=== PATIENT | male | born 1970 | race Caucasian/White ===

== ENCOUNTER 2019-05-11 13:58 | Emergency (ER) | payer OTHER, SELFPAY ==
[2019-05-11 14:05] VITALS: BP 150/99; PULSE 80; RESP 18; TEMP 36.4; O2SAT 99
[2019-05-11 14:36] LABS: Add Manual Diff / Slide Review NO; Basophils Absolute Auto 0 /uL (0-100); Basophils Percent Auto 0.3 % (0-2); Eosinophils Absolute Auto 0 /uL (0-450); Eosinophils Percent Auto 0.2 % (2-4); Hematocrit 46.6 % (41-53); Hemoglobin 16.5 g/dL (13.5-17.5); Lymphocytes Absolute Auto 900 /uL (1100-4500); Lymphocytes Percent Auto 6.6 % (25-40); Mean Corpuscular HGB Conc 35.4 % (30-36); Mean Corpuscular Hemoglobin 31.8 PG (26-34); Mean Corpuscular Volume 89.9 fL (80-100); Monocytes Absolute Auto 900 /uL (0-900); Monocytes Percent Auto 6.7 % (3-14); Neutrophils Absolute Auto 11500 /uL (1500-7000); Neutrophils Percent Auto 86.2 % (50-75); Platelet Count 263 X10^3/uL (150-400); Red Blood Cell Count 5.18 X10^6/uL (4.5-5.9); Red Cell Distribution Width 13.7 % (11.6-14.8); White Blood Cell Count 13.4 X10^3/uL (4.5-11.0)
[2019-05-11 14:50] LABS: Alanine Aminotransferase 34 IU/L (<50); Albumin 4.9 g/dL (3.5-5.0); Albumin Globulin Ratio 1.4 (1.0-2.8); Alkaline Phosphatase 111 U/L (38-126); Amylase 72 U/L (30-110); Aspartate Aminotransferase 26 IU/L (17-59); BUN Creatinine Ratio 14.2 (6-22); Bilirubin Total 0.5 mg/dL (0.2-1.3); Blood Urea Nitrogen 17 mg/dL (9-20); Carbon Dioxide 26 mmol/L (22-32); Chloride 101 mmol/L (98-107); Estimated Glomerular Filt Rate > 60.0 mL/min (>60); Globulin 3.5 g/dL (1.7-4.1); Glucose 138 mg/dL (70-100); HEMOLYSIS < 15 (0-50); Lipase 32 U/L (23-300); Sodium 139 mmol/L (137-145); Total Protein 8.4 g/dL (6.3-8.2)
[2019-05-11] MEDS: KETOROLAC 60 MG/2 ML VIAL 30 MG IV (14:50)
[2019-05-11] MEDS: MORPHINE 4 MG/ML INJ IV (14:51)
[2019-05-11] MEDS: SODIUM CHLORIDE 0.9% 1,000 ML 1000 ML IV (14:51)
--- NOTE | 2019-05-11 15:19 | DI.CT.S_ITS ---
PROCEDURE: CT KIDNEY URETER BLADDER (KUB) INDICATIONS: flank pain, right TECHNIQUE: Noncontrast 5 mm thick sections acquired from the diaphragms to the symphysis. 5 mm thick coronal and sagittal reformats were then performed. For radiation dose reduction, the following was used: automated exposure control, adjustment of mA and/or kV according to patient size. COMPARISON: [facility], CT, CT ABDOMEN PELVIS WITHOUT CONTRAST, 12/27/2013, 0:03. FINDINGS: Image quality: Diagnostic. Lung bases: Lung bases are clear. Heart size is normal. Urinary system: The kidneys are normal in size. However, there is slight enlargement of the right kidney when compared to the left. There is perinephric edema. Moderate right sided hydronephrosis with severe hydroureter is identified. This is slightly more prominent on the current exam. No definite periureteral stranding is evident. There is a rounded ureteral calculus identified near the vesicoureteral junction that measures approximately 4 x 3 x 5 mm (image 70, is raised 2). No additional ureteral calculi are evident. No additional renal calculi are seen bilaterally. No left-sided hydronephrosis or hydroureter is evident. No left ureteral calculi are present. No obvious renal lesions are appreciated. However, the kidneys are not evaluated for parenchymal abnormalities without contrast. The bladder is somewhat distended. However, no bladder calculi or significant bladder wall thickening is evident. Other solid organs: Liver is normal in size. Gallbladder is not enlarged or inflamed. Pancreas is normal in contours. Spleen is normal in size. No adrenal nodules. Peritoneum and bowel: The stomach is unremarkable. The small bowel loops are nondilated. There is felt to represent the appendix is normal in size. No inflammation surrounding the cecum is evident. Moderate amount of residual stool within the proximal colon is evident. However, the more distal portions of the colon are relatively decompressed. No free fluid or loculated fluid collection is identified. There is no free air. Nodes and vessels: No retroperitoneal or mesenteric adenopathy by size criteria. Aorta and inferior vena cava are normal in caliber. Other pelvic soft tissues: No free pelvic fluid. There is a small fat containing left inguinal hernia. No adenopathy is evident. There is no loculated fluid collection or free air. Bones: No acute fracture or suspicious osseous lesion is identified involving the osseous structures of the abdomen or pelvis. Straightening of the normal lumbar lordosis is present. There may be mild degenerative changes of the lower lumbar spine. Bones: No suspicious bony lesions. No acute pelvic fracture is identified. IMPRESSION: 1. Moderate-sized distal right ureteral calculus with associated prominent hydroureter and moderate hydronephrosis. 2. No additional nephroureterolithiasis. 3. Small fat containing left internal hernia. 4. No bowel obstruction. Dictated by: Reno Lauren M.D. on 05/11/2019 at 15:15 Approved by: Reno Lauren M.D. on 05/11/2019 at 15:22
[2019-05-11 15:30] VITALS: BP 125/82; PULSE 79; RESP 18; O2SAT 98
[2019-05-11 15:56] LABS: Bacteria Urine None Seen
--- NOTE | 2019-05-11 16:02 | ED_ITS ---
HPI - Male Genitourinary <JASPAL Siu - Last Filed: 05/11/19 19:03> General Chief complaint: Urogenital-Male Stated complaint: passing kidney stone Time Seen by Provider: 05/11/19 14:28 Source: patient and family Mode of arrival: Ambulatory Limitations: no limitations History of Present Illness HPI Narrative: The patient is a 48-year-old male nonsmoker with history of kidney stones who presents with his for chief complaint of right-sided flank pain and that he is ?passing a kidney stone.States that he woke up with pain today, and that has since been getting worse. Complains of associated nausea, no vomiting. States it starts in his right flank radiating around his a bdomen. States that he had some very slight blood in his urine, but denies any dysuria urgency or frequency denies any fevers chest pain or shortness of breath. Related Data Home Medications Medication Instructions Recorded Confirmed bupropion HCl [Wellbutrin SR] 300 mg PO DAILY #0 05/12/17 Previous Rx's Medication Instructions Recorded clindamycin HCl 300 mg PO Q6H #28 cap 05/12/17 hydrocodone-acetaminophen [[place]] 1 tab PO Q6HP PRN #12 tab 05/12/17 hydrocodone-acetaminophen [[place]] 1 tab PO Q4-6H PRN #10 tab 05/11/19 ketorolac 10 mg PO TID PRN #14 tab 05/11/19 ondansetron 4 mg PO Q6H PRN #20 tab 05/11/19 tamsulosin [Flomax] 0.4 mg PO DAILY #7 cap 05/11/19 Allergies Allergy/AdvReac Type Severity Reaction Status Date / Time Sulfa (Sulfonamide Allergy Unknown Verified 05/11/19 14:50 Antibiotics) [SULFA (SULFONAMIDE ANTIBIOTICS)] Review of Systems <JASPAL Siu - Last Filed: 05/11/19 19:03> Review of Systems Narrative: GENERAL: Denies chills, fatigue, malaise, fever, sweats. HEENT: Denies sinus pain, ear pain, sore throat, difficulty swallowing, dizziness. RESPIRATORY: Denies dyspnea, cough, wheezing, hemoptysis, sputum. CARDIOVASCULAR: Denies chest pain, palpitations, orthopnea, edema, GASTROINTESTINAL: See HPI : See HPI MUSCULOSKELETAL: denies weakness, joint pain, or bony pain SKIN: Denies rash, skin lesions, or other NEUROLOGIC: Denies weakness, headache, numbness, change in speech, confusion, seizures, incoordination. PSYCHIATRIC: No concerning psychosocial issues. 12 point review of systems is negative except for those stated above Patient History <JASPAL Siu - Last Filed: 05/11/19 19:03> Medical History (Updated 05/11/19 @ 17:07 by JASPAL Siu) History of kidney stones (Acute) Social History Smoking Status: Never smoker Smoking Status: Never smoker Substance Use Type: does not use Exam <JASPAL Siu - Last Filed: 05/11/19 19:03> Narrative Exam Narrative: GENERAL: This is a well-nourished, well-developed patient, appears uncomfortable HEAD: Atraumatic. Normocephalic. No temporal or scalp tenderness. EYES: Pupils equal round and reactive. Extraocular motions intact. No scleral icterus. No injection or drainage. ENT: Nose without bleeding, purulent drainage or septal hematoma. Throat without erythema, tonsillar hypertrophy or exudate. Uvula midline. Airway patent. NECK: Trachea midline. No JVD or lymphadenopathy. Supple, nontender, no meningeal signs. CARDIOVASCULAR: Regular rate and rhythm RESPIRATORY: Clear to auscultation. Breath sounds equal bilaterally. No wheezes, rales, or rhonchi. No cough. No increased respiratory effort. No accessory muscle use GASTROINTESTINAL: Abdomen soft, slight right lower quadrant pain to palpation no guarding, nondistended. No hepato-splenomegaly, or palpable masses. Active bowel sounds all 4 quadrants EXTREMITIES: No clubbing, cyanosis, or edema. No joint tenderness, effusion, or edema noted. BACK: Nontender without deformity or crepitance. Right-sided flank pain, no left-sided flank pain NEURO: AOx3. Stable gait, interactive, age appropriate SKIN: No rash or erythema on visible skin Initial Vital Signs Initial Vital Signs: Vital Signs Temperature 97.5 F L 05/11/19 14:05 Pulse Rate 80 05/11/19 14:05 Respiratory Rate 18 05/11/19 14:05 Blood Pressure 150/99 H 05/11/19 14:05 Pulse Oximetry 99 05/11/19 14:05 <Rohit Castillo DO - Last Filed: 05/11/19 19:09> Initial Vital Signs Initial Vital Signs: Vital Signs Temperature 97.5 F L 05/11/19 14:05 Pulse Rate 80 05/11/19 14:05 Respiratory Rate 18 05/11/19 14:05 Blood Pressure 150/99 H 05/11/19 14:05 Pulse Oximetry 99 05/11/19 14:05 Course <DEMOND Siu-BC - Last Filed: 05/11/19 19:03> Orders Ordered: ED Orders 05/11/19 14:20 Amylase Stat Complete Blood Count AUTO DIFF Stat Comprehensive Metabolic Panel Stat Lipase Stat 05/11/19 15:19 CT kidney ureter bladder (KUB) Stat 05/11/19 15:45 Urine Microscopic Stat Discontinued Medications Hydrocodone Bitart/Acetaminophen ([place] 5/325) 1 tab PO NOW ONE Stop: 05/11/19 16:52 Last Admin: 05/11/19 16:57 Dose: 1 tab Documented by: IVÁN Sodium Chloride (Normal Saline 0.9%) 1,000 mls @ 1,000 mls/hr IV BOLUS ONE Stop: 05/11/19 15:27 Last Infusion: 05/11/19 15:27 Dose: 0 mls/hr Documented by: Admin: 05/11/19 14:51 Dose: 1,000 mls/hr Documented by: IVÁN Ketorolac Tromethamine (Toradol) 30 mg IV NOW ONE Stop: 05/11/19 14:36 Last Admin: 05/11/19 14:50 Dose: 30 mg Documented by: IVÁN Morphine Sulfate (Morphine) 4 mg IV NOW ONE Stop: 05/11/19 14:36 Last Admin: 05/11/19 14:51 Dose: 4 mg Documented by: IVÁN Vital Signs Vital signs: Vital Signs - 8 hr 05/11/19 14:05 05/11/19 15:30 05/11/19 16:26 Temperature 97.5 F L Pulse Rate 80 79 70 Respiratory Rate 18 18 18 Blood Pressure 150/99 H Blood Pressure [Left Arm] 125/82 129/85 Pulse Oximetry 99 98 98 05/11/19 16:51 Temperature Pulse Rate 70 Respiratory Rate 18 Blood Pressure 131/79 Blood Pressure [Left Arm] Pulse Oximetry 97 <Rohit Castillo DO - Last Filed: 05/11/19 19:09> Orders Ordered: ED Orders 05/11/19 14:20 Amylase Stat Complete Blood Count AUTO DIFF Stat Comprehensive Metabolic Panel Stat Lipase Stat 05/11/19 15:19 CT kidney ureter bladder (KUB) Stat 05/11/19 15:45 Urine Microscopic Stat Discontinued Medications Hydrocodone Bitart/Acetaminophen ([place] 5/325) 1 tab PO NOW ONE Stop: 05/11/19 16:52 Last Admin: 05/11/19 16:57 Dose: 1 tab Documented by: IVÁN Sodium Chloride (Normal Saline 0.9%) 1,000 mls @ 1,000 mls/hr IV BOLUS ONE Stop: 05/11/19 15:27 Last Infusion: 05/11/19 15:27 Dose: 0 mls/hr Documented by: Admin: 05/11/19 14:51 Dose: 1,000 mls/hr Documented by: IVÁN Ketorolac Tromethamine (Toradol) 30 mg IV NOW ONE Stop: 05/11/19 14:36 Last Admin: 05/11/19 14:50 Dose: 30 mg Documented by: IVÁN Morphine Sulfate (Morphine) 4 mg IV NOW ONE Stop: 05/11/19 14:36 Last Admin: 05/11/19 14:51 Dose: 4 mg Documented by: IVÁN Vital Signs Vital signs: Vital Signs - 8 hr 05/11/19 14:05 05/11/19 15:30 05/11/19 16:26 Temperature 97.5 F L Pulse Rate 80 79 70 Respiratory Rate 18 18 18 Blood Pressure 150/99 H Blood Pressure [Left Arm] 125/82 129/85 Pulse Oximetry 99 98 98 05/11/19 16:51 Temperature Pulse Rate 70 Respiratory Rate 18 Blood Pressure 131/79 Blood Pressure [Left Arm] Pulse Oximetry 97 MDM - Male Genitourinary <JASPAL Siu - Last Filed: 05/11/19 19:03> Lab Data Result diagrams: 05/11/19 14:20 05/11/19 14:20 Labs: Lab Results 05/11/19 05/11/19 05/11/19 Range/Units 14:20 14:20 15:45 WBC 13.4 H (4.5-11.0) X10^3/uL RBC 5.18 (4.5-5.9) X10^6/uL Hgb 16.5 (13.5-17.5) g/dL Hct 46.6 (41-53) % MCV 89.9 (80-100) fL MCH 31.8 (26-34) PG MCHC 35.4 (30-36) % RDW 13.7 (11.6-14.8) % Plt Count 263 (150-400) X10^3/uL Neut % (Auto) 86.2 H (50-75) % Lymph % (Auto) 6.6 L (25-40) % [place] % (Auto) 6.7 (3-14) % Eos % (Auto) 0.2 L (2-4) % Baso % (Auto) 0.3 (0-2) % Neut # (Auto) 34726 H (3799-4295) /uL Lymph # (Auto) 900 L (7280-1035) /uL [place] # (Auto) 900 (0-900) /uL Eos # (Auto) 0 (0-450) /uL Baso # (Auto) 0 (0-100) /uL Sodium 139 (137-145) mmol/L Potassium 4.0 (3.4-5.1) mmol/L Chloride 101 (98-107) mmol/L Carbon Dioxide 26 (22-32) mmol/L BUN 17 (9-20) mg/dL Creatinine 1.20 (0.66-1.25) mg/dL Estimated GFR > 60.0 (>60) mL/min BUN/Creatinine Ratio 14.2 (6-22) Glucose 138 H (70-100) mg/dL Calcium 10.0 (8.4-10.2) mg/dL Total Bilirubin 0.5 (0.2-1.3) mg/dL AST 26 (17-59) IU/L ALT 34 (<50) IU/L Alkaline Phosphatase 111 (38-126) U/L Total Protein 8.4 H (6.3-8.2) g/dL Albumin 4.9 (3.5-5.0) g/dL Globulin 3.5 (1.7-4.1) g/dL Albumin/Globulin Ratio 1.4 (1.0-2.8) Amylase 72 (30-110) U/L Lipase 32 (23-300) U/L Urine RBC 5-10/hpf H (0-5/HPF) Urine WBC 0-1/hpf (0-5/HPF) Urine Bacteria None seen (None) Urine Mucus 1+ H (Negative) Ur Culture Indicated? Cult not indicated Urine Dip Bedside Urine Glucose Negative Bedside Urine Bilirubin - Negative Bedside Urine Ketone - Negative Urine Specific [place] 1.015 Bedside Urine Occult Blood ++ Bedside Urine pH 6.0 Bedside Urine Protein - Negative Bedside Urine Urobilinogen - Negative Bedside Urine Nitrite - Negative Bedside Urine Leukocytes - Negative Esterase Imaging Data CT scan - abdomen/pelvis: Radiologist's Impression: [address] [address] [address] Scan Report Signed Patient: Kenneth Walker DMR#: [id number] : 1970Acct:[id number] Age/Sex: 48 / MDate of Service: 05/11/19 Loc: ED Accession Number: [id number] Procedure: CT kidney ureter bladder (KUB) Ordering Provider: Karis Alaniz- PROCEDURE: CT KIDNEY URETER BLADDER (KUB) INDICATIONS: flank pain, right TECHNIQUE: Noncontrast 5 mm thick sections acquired from the diaphragms to the symphysis. 5 mm thick coronal and sagittal reformats were then performed. For radiation dose reduction, the following was used: automated exposure control, adjustment of mA and/or kV according to patient size. COMPARISON: [facility], CT, CT ABDOMEN PELVIS WITHOUT CONTRAST, 12/27/2013, 0:03. FINDINGS: Image quality: Diagnostic. Lung bases: Lung bases are clear. Heart size is normal. Urinary system: The kidneys are normal in size. However, there is slight enla rgement of the right kidney when compared to the left. There is perinephric edema. Moderate right sided hydronephrosis with severe hydroureter is identified. This is slightly more prominent on the current exam. No definite periureteral stranding is evident. There is a rounded ureteral calculus identified near the vesicoureteral junction that measures approximately 4 x 3 x 5 mm (image 70, is raised 2). No additional ureteral calculi are evident. No additional renal calculi are seen bilaterally. No left-sided hydronephrosis or hydroureter is evident. No left ureteral calculi are present. No obvious renal lesions are appreciated. However, the kidneys are not evaluated for parenchymal abnormalities without contrast. The bladder is somewhat distended. However, no bladder calculi or significant bladder wall thickening is evident. Other solid organs: Liver is normal in size. Gallbladder is not enlarged or inflamed. Pancreas is normal in contours. Spleen is normal in size. No adrenal nodules. Peritoneum and bowel: The stomach is unremarkable. The small bowel loops are nondilated. There is felt to represent the appendix is normal in size. No inflammation surrounding the cecum is evident. Moderate amount of residual stool within the proximal colon is evident. However, the more distal portions of the colon are relatively decompressed. No free fluid or loculated fluid collection is identified. There is no free air. Nodes and vessels: No retroperitoneal or mesenteric adenopathy by size criteria. Aorta and inferior vena cava are normal in caliber. Other pelvic soft tissues: No free pelvic fluid. There is a small fat containing left inguinal hernia. No adenopathy is evident. There is no loculated fluid collection or free air. Bones: No acute fracture or suspicious osseous lesion is identified involving the osseous structures of the abdomen or pelvis. Straightening of the normal lumbar lordosis is present. There may be mild degenerative changes of the lower lumbar spine. Bones: No suspicious bony lesions. No acute pelvic fracture is identified. IMPRESSION: 1. Moderate-sized distal right ureteral calculus with associated prominent hydroureter and moderate hydronephrosis. 2. No additional nephroureterolithiasis. 3. Small fat containing left internal hernia. 4. No bowel obstruction. Dictated by: Reno Lauren M.D. on 05/11/2019 at 15:15 Approved by: Reno Lauren M.D. on 05/11/2019 at 15:22 MDM Narrative Medical decision making narrative: The patient is a 48-year-old male who presents with a chief complaint of flank pain. Labs are with new acute findings, slight leukocytosis to 13.2 might be related to pain. Patient has a ureteral calculus at 4 x 3 x 5 mm. He felt much improved after the above-stated therapies. I discussed at length the need to follow up with primary care provider in the next few days especially if he does not pass the stone. Discussed not combining Toradol with anti-inflammatories. Discussed that [place] can be constipating and sedating. Urine has no signs of infection with no bacteria nitrates leukocyte esterase etcetera. Discussed at length return to the emergency department for any acute concerns such as inability keep down fluids etc.. Patient has no questions or concerns upon discharge and states understanding of return precautions as well as follow-up care. <Rohit Castillo, DO - Last Filed: 05/11/19 19:09> Lab Data Labs: Lab Results 05/11/19 05/11/19 05/11/19 Range/Units 14:20 14:20 15:45 WBC 13.4 H (4.5-11.0) X10^3/uL RBC 5.18 (4.5-5.9) X10^6/uL Hgb 16.5 (13.5-17.5) g/dL Hct 46.6 (41-53) % MCV 89.9 (80-100) fL MCH 31.8 (26-34) PG MCHC 35.4 (30-36) % RDW 13.7 (11.6-14.8) % Plt Count 263 (150-400) X10^3/uL Neut % (Auto) 86.2 H (50-75) % Lymph % (Auto) 6.6 L (25-40) % [place] % (Auto) 6.7 (3-14) % Eos % (Auto) 0.2 L (2-4) % Baso % (Auto) 0.3 (0-2) % Neut # (Auto) 87052 H (1798-2448) /uL Lymph # (Auto) 900 L (9067-1955) /uL [place] # (Auto) 900 (0-900) /uL Eos # (Auto) 0 (0-450) /uL Baso # (Auto) 0 (0-100) /uL Sodium 139 (137-145) mmol/L Potassium 4.0 (3.4-5.1) mmol/L Chloride 101 (98-107) mmol/L Carbon Dioxide 26 (22-32) mmol/L BUN 17 (9-20) mg/dL Creatinine 1.20 (0.66-1.25) mg/dL Estimated GFR > 60.0 (>60) mL/min BUN/Creatinine Ratio 14.2 (6-22) Glucose 138 H (70-100) mg/dL Calcium 10.0 (8.4-10.2) mg/dL Total Bilirubin 0.5 (0.2-1.3) mg/dL AST 26 (17-59) IU/L ALT 34 (<50) IU/L Alkaline Phosphatase 111 (38-126) U/L Total Protein 8.4 H (6.3-8.2) g/dL Albumin 4.9 (3.5-5.0) g/dL Globulin 3.5 (1.7-4.1) g/dL Albumin/Globulin Ratio 1.4 (1.0-2.8) Amylase 72 (30-110) U/L Lipase 32 (23-300) U/L Urine RBC 5-10/hpf H (0-5/HPF) Urine WBC 0-1/hpf (0-5/HPF) Urine Bacteria None seen (None) Urine Mucus 1+ H (Negative) Ur Culture Indicated? Cult not indicated Urine Dip Bedside Urine Glucose Negative Bedside Urine Bilirubin - Negative Bedside Urine Ketone - Negative Urine Specific [place] 1.015 Bedside Urine Occult Blood ++ Bedside Urine pH 6.0 Bedside Urine Protein - Negative Bedside Urine Urobilinogen - Negative Bedside Urine Nitrite - Negative Bedside Urine Leukocytes - Negative Esterase Discharge Plan Departure Patient Disposition: Home Clinical Impression: Right ureteral calculus Discharge Date/Time: 05/11/19 17:12 Instructions: DI for Kidney Stones Activity Restrictions/Additional Instructions: Today we found a stone in your right ureter that measures 4 x 3 x 5 mm I've started you on Flomax to help pass the stone as well as given you prescriptions for nausea and pain medication Please follow-up with primary care provider in the next few days. You may need to see a urologist if you cannot pass the stone. Please monitor for acute concerns such as fever, inability to urinate etcetera come back to emergency department for any acute concerns. I have given you a prescription of Toradol. This is an NSAID. Do not combine it with other NSAIDs such as Aleve or ibuprofen. I suggest taking it with some food, as it can irritate your stomach. I have given you a prescription of a narcotic for pain. Be aware that this can be constipating and sedating. I encouraged taking with a stool softener, pushing fluids and fiber. Do not take and drive, operate heavy machinery, etc. Do not combine it with any other sedating substances such as alcohol. The combination of narcotics and alcohol and/or other sedatives can be lethal. Please be aware that we do not provide refills of controlled substances in the emergency department. Please follow up with her primary care provider. Prescriptions: New hydrocodone-acetaminophen [[place]] 5-325 mg tablet 1 tab PO Q4-6H PRN (Reason: pain) Qty: 10 RF: 0 ondansetron 4 mg tablet,disintegrating 4 mg PO Q6H PRN (Reason: nausea and vomiting) Qty: 20 RF: 0 tamsulosin [Flomax] 0.4 mg capsule 0.4 mg PO DAILY Qty: 7 RF: 0 ketorolac 10 mg tablet 10 mg PO TID PRN (Reason: pain) Qty: 14 RF: 0 No Action bupropion HCl [Wellbutrin SR] 100 MG tablet extended release 12 hr 300 mg PO DAILY Qty: 0 RF: 0 clindamycin HCl 300 MG capsule 300 mg PO Q6H Qty: 28 RF: 0 hydrocodone-acetaminophen [[place]] 7.5 MG/325 MG tablet 1 tab PO Q6HP PRNQty: 12 RF: 0
[2019-05-11 16:13] LABS: Mucus Urine 1+ (Negative); RBC Urine 5-10/HPF (0-5/HPF); WBC Urine 0-1/HPF (0-5/HPF)
[2019-05-11 16:14] LABS: Culture Indicated Urine Cult Not Indicated
[2019-05-11 16:26] VITALS: BP 129/85; PULSE 70; RESP 18; O2SAT 98
[2019-05-11 16:51] VITALS: BP 131/79; PULSE 70; RESP 18; O2SAT 97
[2019-05-11] MEDS: HYDROCODONE/ACET 5/325 TABLET 1 TAB PO (16:57)
== END 2019-05-11 17:12 | disposition home or self-care (01) ==
PROVIDERS: Emergency Provider Nurse Practitioner Family
DX: N20.1 Calculus of ureter (principal); Z87.442 Personal history of urinary calculi
CPT/HCPCS: 36415; 51798; 74176; 80053; 81003; 81015; 82150; 83690; 85025; 96361; 96374; 96375; 99284; J1885; J2270

== ENCOUNTER 2019-06-13 18:10 | Emergency (ER) | payer OTHER, SELFPAY ==
[2019-06-13 18:17] VITALS: BP 172/91; PULSE 66; RESP 15; TEMP 36.8; O2SAT 100; BMI 30.5
--- NOTE | 2019-06-13 19:33 | ED_ITS ---
HPI - Male Genitourinary <Edwige GascaCHRISTY - Last Filed: 06/13/19 21:38> General Chief complaint: Urogenital-Male Stated complaint: thinks passing a kidney stone Time Seen by Provider: 06/13/19 19:25 Source: patient Mode of arrival: Ambulatory History of Present Illness HPI Narrative: 48yo male with a history of flank pain, presents to the ED right- sided flank pain that started around 1:00pm today. He states it originally started in his abdomen but then progressed to his right flank area. He reports associated nausea over the past 1-2 hours. Patient denies any fevers, dysuria, abdominal pain at this time, vomiting, diarrhea, shortness of breath, or chest pain. He states he was seen kidney stone, he did not see a stone in the strainer but remembers urinating after the CT and feeling significant relief of pain. He states this pain is very similar to what he experienced last month. Additionally, he has just recovered from C diff after taking Augmentin for a sinus infection. He denies any continued diarrhea. Patient did not follow-up with a urologist. Patient states that he has had to kidney stones in the past which he has passed without difficulty. Related Data Home Medications Medication Instructions Recorded Confirmed bupropion HCl [Wellbutrin SR] 300 mg PO DAILY #0 05/12/17 Previous Rx's Medication Instructions Recorded clindamycin HCl 300 mg PO Q6H #28 cap 05/12/17 hydrocodone-acetaminophen [Eaton] 1 tab PO Q6HP PRN #12 tab 05/12/17 hydrocodone-acetaminophen [Eaton] 1 tab PO Q4-6H PRN #10 tab 05/11/19 ketorolac 10 mg PO TID PRN #14 tab 05/11/19 ondansetron 4 mg PO Q6H PRN #20 tab 05/11/19 tamsulosin [Flomax] 0.4 mg PO DAILY #7 cap 05/11/19 ondansetron 4 mg PO Q6H PRN #14 tab 06/13/19 oxycodone-acetaminophen [Percocet] 1 tab PO Q4-6H PRN #20 tab 06/13/19 tamsulosin [Flomax] 0.4 mg PO DAILY #20 cap 06/13/19 Allergies Allergy/AdvReac Type Severity Reaction Status Date / Time Sulfa (Sulfonamide Allergy Unknown Verified 06/13/19 18:17 Antibiotics) [SULFA (SULFONAMIDE ANTIBIOTICS)] Review of Systems <CHRISTY Ferguson - Last Filed: 06/13/19 21:38> Review of Systems Narrative: REVIEW OF SYSTEMS: GENERAL: Denies fever or chills. HENT: No head trauma. CARDIOVASCULAR: No chest pain. RESPIRATORY: No shortness of breath or cough. GASTROINTESTINAL: Reports nausea, see HPI. GENITOURINARY: Reports right flank pain, see HPI. MUSCULOSKELETAL: No trauma. INTEGUMENTARY: No rash, lesions, or pruritus. NEURO: No memory loss or confusion. Patient History <CHRISTY Ferguson - Last Filed: 06/13/19 21:38> Medical History History of kidney stones (Acute) Social History Smoking Status: Never smoker Smoking Status: Never smoker Substance Use Type: does not use Exam <CHRISTY Ferguson - Last Filed: 06/13/19 21:38> Initial Vital Signs Initial Vital Signs: Vital Signs Temperature 98.2 F 06/13/19 18:17 Pulse Rate 66 06/13/19 18:17 Respiratory Rate 15 06/13/19 18:17 Blood Pressure 172/91 H 06/13/19 18:17 Pulse Oximetry 100 06/13/19 18:17 PHYSICAL EXAMINATION: GENERAL: Well groomed, alert, and cooperative. Answers questions promptly and appropriately. Vital signs noted. HENT: Normocephalic, atraumatic. Hearing intact. EYES: No periorbital swelling. CARDIOVASCULAR: Regular rate. Regular rate and rhythm. RESPIRATORY: Normal respiratory rate, trachea midline, airway patent. No stridor, nasal flaring or accessory muscle use. Lungs clear. GASTROINTESTINAL: Bowel sounds normoactive. Abdomen is soft and non-tender. No organomegaly, no palpable masses. GENITALURINARY: Right CVA tenderness. MUSCULOSKELETAL: Normal gait and coordination. Equal tone and mass bilaterally. SKIN: Warm, dry, soft, appropriate color for ethnicity. No lesions, rashes, or wounds to visulized areas. NEURO: Alert and Oriented X 3. Good coordination. No ataxia, or sensory deficits, or cognitive issues. PSYCH: Appropriate affect and mood. <Rohit Castillo DO - Last Filed: 06/13/19 23:53> Initial Vital Signs Initial Vital Signs: Vital Signs Temperature 98.2 F 06/13/19 18:17 Pulse Rate 66 06/13/19 18:17 Respiratory Rate 15 06/13/19 18:17 Blood Pressure 172/91 H 06/13/19 18:17 Pulse Oximetry 100 06/13/19 18:17 Course <CHRISTY Ferguson - Last Filed: 06/13/19 21:38> Course Course Narrative: I had an extensive conversation with patient about the option for a CT scan. We discussed benefits and risks of increased radiation and cost versus knowledge of location and size of stone. We discussed how follow-up was highly advised either way. We discussed how plan of care would not change with or without a CT scan if labs were within normal limits and no infection was present. Patient was worried about the size and location of stone. I offered to do a CT scan for this information as we agreed this may be helpful when he visits the urologist. However, patient declined at this time after he was advised that labs were within normal limits. Patient reports significant decreased pain after ketorolac and morphine and fluids. Patient was given pain medication, tamsulosin, and ondansetron to help with pain upon discharge. Orders Ordered: ED Orders 06/13/19 18:00 Urine Microscopic Stat 06/13/19 19:40 Complete Blood Count AUTO DIFF Stat Comprehensive Metabolic Panel Stat Discontinued Medications Sodium Chloride (Normal Saline 0.9%) 1,000 mls @ 1,000 mls/hr IV BOLUS ONE Stop: 06/13/19 20:31 Last Infusion: 06/13/19 21:26 Dose: 0 mls/hr Documented by: Admin: 06/13/19 19:51 Dose: 1,000 mls/hr Documented by: NINO Ketorolac Tromethamine (Toradol) 30 mg IV NOW ONE Stop: 06/13/19 19:33 Last Admin: 06/13/19 19:45 Dose: 30 mg Documented by: NINO Morphine Sulfate (Morphine) 4 mg IV NOW ONE Stop: 06/13/19 19:51 Last Admin: 06/13/19 19:53 Dose: 4 mg Documented by: NINO Morphine Sulfate (Morphine) 4 mg IV NOW ONE Stop: 06/13/19 21:14 Last Admin: 06/13/19 21:19 Dose: 4 mg Documented by: NINO Ondansetron HCl (Zofran) 4 mg IV NOW ONE Stop: 06/13/19 19:33 Last Admin: 06/13/19 19:45 Dose: 4 mg Documented by: NINO Ondansetron HCl (Zofran Odt Prepack) 1 bottle MISC SEEINSTR ONE Stop: 06/13/19 20:56 Last Admin: 06/13/19 21:22 Dose: 1 bottle Documented by: NINO Oxycodone/Acetaminophen (Endocet 5/325 [place]) 1 bottle MISC SEEINSTR ONE Stop: 06/13/19 20:56 Last Admin: 06/13/19 21:22 Dose: 1 bottle Documented by: NINO Tamsulosin HCl (Flomax) 0.4 mg PO NOW ONE Stop: 06/13/19 20:56 Last Admin: 06/13/19 21:19 Dose: 0.4 mg Documented by: NINO Consultations Consultation #1: Patient staffed with Dr. Castillo who agrees with plan of care. Vital Signs Vital signs: Vital Signs - 8 hr 06/13/19 18:17 06/13/19 21:07 Temperature 98.2 F Pulse Rate 66 77 Respiratory Rate 15 14 Blood Pressure 172/91 H Blood Pressure [Left Arm] 133/91 H Pulse Oximetry 100 97 <Rohit Castillo, DO - Last Filed: 06/13/19 23:53> Orders Ordered: ED Orders 06/13/19 18:00 Urine Microscopic Stat 06/13/19 19:40 Complete Blood Count AUTO DIFF Stat Comprehensive Metabolic Panel Stat Discontinued Medications Sodium Chloride (Normal Saline 0.9%) 1,000 mls @ 1,000 mls/hr IV BOLUS ONE Stop: 06/13/19 20:31 Last Infusion: 06/13/19 21:26 Dose: 0 mls/hr Documented by: Admin: 06/13/19 19:51 Dose: 1,000 mls/hr Documented by: NINO Ketorolac Tromethamine (Toradol) 30 mg IV NOW ONE Stop: 06/13/19 19:33 Last Admin: 06/13/19 19:45 Dose: 30 mg Documented by: NINO Morphine Sulfate (Morphine) 4 mg IV NOW ONE Stop: 06/13/19 19:51 Last Admin: 06/13/19 19:53 Dose: 4 mg Documented by: NINO Morphine Sulfate (Morphine) 4 mg IV NOW ONE Stop: 06/13/19 21:14 Last Admin: 06/13/19 21:19 Dose: 4 mg Documented by: NINO Ondansetron HCl (Zofran) 4 mg IV NOW ONE Stop: 06/13/19 19:33 Last Admin: 06/13/19 19:45 Dose: 4 mg Documented by: NINO Ondansetron HCl (Zofran Odt Prepack) 1 bottle MISC SEEINSTR ONE Stop: 06/13/19 20:56 Last Admin: 06/13/19 21:22 Dose: 1 bottle Documented by: NINO Oxycodone/Acetaminophen (Endocet 5/325 Prepack) 1 bottle MISC SEEINSTR ONE Stop: 06/13/19 20:56 Last Admin: 06/13/19 21:22 Dose: 1 bottle Documented by: NINO Tamsulosin HCl (Flomax) 0.4 mg PO NOW ONE Stop: 06/13/19 20:56 Last Admin: 06/13/19 21:19 Dose: 0.4 mg Documented by: NINO Vital Signs Vital signs: Vital Signs - 8 hr 06/13/19 18:17 06/13/19 21:07 Temperature 98.2 F Pulse Rate 66 77 Respiratory Rate 15 14 Blood Pressure 172/91 H Blood Pressure [Left Arm] 133/91 H Pulse Oximetry 100 97 MDM - Male Genitourinary <CHRISTY Ferguson - Last Filed: 06/13/19 21:38> Medical Records Attestation: I reviewed the patient's medical records. Lab Data Attestation: I reviewed the patient's lab results. Result diagrams: 06/13/19 19:40 06/13/19 19:40 Labs: Lab Results 06/13/19 06/13/19 06/13/19 Range/Units 18:00 19:40 19:40 WBC 9.9 (4.5-11.0) X10^3/uL RBC 4.62 (4.5-5.9) X10^6/uL Hgb 14.7 (13.5-17.5) g/dL Hct 42.5 (41-53) % MCV 92.0 (80-100) fL MCH 31.8 (26-34) PG MCHC 34.5 (30-36) % RDW 14.6 (11.6-14.8) % Plt Count 168 (150-400) X10^3/uL Neut % (Auto) 69.8 (50-75) % Lymph % (Auto) 17.7 L (25-40) % [place] % (Auto) 9.7 (3-14) % Eos % (Auto) 2.1 (2-4) % Baso % (Auto) 0.7 (0-2) % Neut # (Auto) 6900 (3701-2069) /uL Lymph # (Auto) 1800 (0354-1207) /uL [place] # (Auto) 1000 H (0-900) /uL Eos # (Auto) 200 (0-450) /uL Baso # (Auto) 100 (0-100) /uL Sodium 144 (137-145) mmol/L Potassium 3.4 (3.4-5.1) mmol/L Chloride 108 H (98-107) mmol/L Carbon Dioxide 26 (22-32) mmol/L BUN 10 (9-20) mg/dL Creatinine 1.00 (0.66-1.25) mg/dL Estimated GFR > 60.0 (>60) mL/min BUN/Creatinine Ratio 10.0 (6-22) Glucose 106 H (70-100) mg/dL Calcium 9.7 (8.4-10.2) mg/dL Total Bilirubin 0.4 (0.2-1.3) mg/dL AST 26 (17-59) IU/L ALT 25 (<50) IU/L Alkaline Phosphatase 102 (38-126) U/L Total Protein 8.1 (6.3-8.2) g/dL Albumin 4.5 (3.5-5.0) g/dL Globulin 3.6 (1.7-4.1) g/dL Albumin/Globulin Ratio 1.3 (1.0-2.8) Urine RBC 1-5/hpf (0-5/HPF) Urine WBC None seen (0-5/HPF) Urine Bacteria None seen (None) Ur Culture Indicated? Cult not indicated Urine Dip Bedside Urine Glucose Negative Bedside Urine Bilirubin - Negative Bedside Urine Ketone - Negative Urine Specific [place] 1 Bedside Urine Occult Blood + Bedside Urine pH 6.5 Bedside Urine Protein - Negative Bedside Urine Urobilinogen - Negative Bedside Urine Nitrite - Negative Bedside Urine Leukocytes - Negative Esterase MDM Narrative Medical decision making narrative: 48yo male with a history of renal calculi presenting to the emergency department complaining of right flank pain starting today. Patient reports is very similar to the renal calculi pain he is at the past. Urine is positive for blood, renal function is within normal limits. Pain was controlled with Toradol and morphine and Zofran. Discussed with patient extensively about the benefits and risks of having a scan. Due to normal laboratory work and lack of signs of infection in the urine such as bacteria or white blood cells (as well as normal white blood cell count), no scan was immediately indicated as patient has had to previous renal calculi that he has passed on his own without intervention. However, patient was concerned initially. CT scan was offered, patient declined after explanation about indications for CT and the risks and the benefits. Patient was referred to a urologist and was told to be seen in the next week for further evaluation. He was given strict return precautions such as worsening pain, fevers, etc. patient agrees to plan of care verbalized understanding. <Rohit Castillo, DO - Last Filed: 06/13/19 23:53> Lab Data Labs: Lab Results 06/13/19 06/13/19 06/13/19 Range/Units 18:00 19:40 19:40 WBC 9.9 (4.5-11.0) X10^3/uL RBC 4.62 (4.5-5.9) X10^6/uL Hgb 14.7 (13.5-17.5) g/dL Hct 42.5 (41-53) % MCV 92.0 (80-100) fL MCH 31.8 (26-34) PG MCHC 34.5 (30-36) % RDW 14.6 (11.6-14.8) % Plt Count 168 (150-400) X10^3/uL Neut % (Auto) 69.8 (50-75) % Lymph % (Auto) 17.7 L (25-40) % [place] % (Auto) 9.7 (3-14) % Eos % (Auto) 2.1 (2-4) % Baso % (Auto) 0.7 (0-2) % Neut # (Auto) 6900 (1616-2456) /uL Lymph # (Auto) 1800 (5567-4761) /uL [place] # (Auto) 1000 H (0-900) /uL Eos # (Auto) 200 (0-450) /uL Baso # (Auto) 100 (0-100) /uL Sodium 144 (137-145) mmol/L Potassium 3.4 (3.4-5.1) mmol/L Chloride 108 H (98-107) mmol/L Carbon Dioxide 26 (22-32) mmol/L BUN 10 (9-20) mg/dL Creatinine 1.00 (0.66-1.25) mg/dL Estimated GFR > 60.0 (>60) mL/min BUN/Creatinine Ratio 10.0 (6-22) Glucose 106 H (70-100) mg/dL Calcium 9.7 (8.4-10.2) mg/dL Total Bilirubin 0.4 (0.2-1.3) mg/dL AST 26 (17-59) IU/L ALT 25 (<50) IU/L Alkaline Phosphatase 102 (38-126) U/L Total Protein 8.1 (6.3-8.2) g/dL Albumin 4.5 (3.5-5.0) g/dL Globulin 3.6 (1.7-4.1) g/dL Albumin/Globulin Ratio 1.3 (1.0-2.8) Urine RBC 1-5/hpf (0-5/HPF) Urine WBC None seen (0-5/HPF) Urine Bacteria None seen (None) Ur Culture Indicated? Cult not indicated Urine Dip Bedside Urine Glucose Negative Bedside Urine Bilirubin - Negative Bedside Urine Ketone - Negative Urine Specific [place] 1 Bedside Urine Occult Blood + Bedside Urine pH 6.5 Bedside Urine Protein - Negative Bedside Urine Urobilinogen - Negative Bedside Urine Nitrite - Negative Bedside Urine Leukocytes - Negative Esterase Discharge Plan Departure Patient Disposition: Home Clinical Impression: Renal calculi Discharge Date/Time: 06/13/19 21:39 Instructions: DI for Kidney Stones Activity Restrictions/Additional Instructions: Thank you for entrusting me with your care today. As discussed, your pain is most likely caused by a kidney stone due to your urinalysis, exams, and labs. Your renal function is within normal limits. I highly suggest to follow-up with a urologist in the next week for further evaluation, especially if your pain continues. Your medications were [facility] to [facility]. You have been prescribed a narcotic medication, this medication can make you drowsy. Do not drive while using this medication or perform activities that require mental alertness. These medications can also make you constipated, please use [id number] docusate sodium as needed for constipation. I have also given you a nausea medication as well as Flomax to help past your stone. Continue to strain your urine and collect the stone if possible. Return emergency department for new or worsening symptoms such as severe pain, uncontrollable vomiting, high fevers, chest pain, shortness of breath or any other concerns. Prescriptions: New oxycodone-acetaminophen [Percocet] 5-325 mg tablet 1 tab PO Q4-6H PRN (Reason: pain) Qty: 20 RF: 0 ondansetron 4 mg tablet,disintegrating 4 mg PO Q6H PRN (Reason: nausea and vomiting) Qty: 14 RF: 0 tamsulosin [Flomax] 0.4 mg capsule 0.4 mg PO DAILY Qty: 20 RF: 0 No Action bupropion HCl [Wellbutrin SR] 100 MG tablet extended release 12 hr 300 mg PO DAILY Qty: 0 RF: 0 clindamycin HCl 300 MG capsule 300 mg PO Q6H Qty: 28 RF: 0 hydrocodone-acetaminophen [Eaton] 7.5 MG/325 MG tablet 1 tab PO Q6HP PRNQty: 12 RF: 0 hydrocodone-acetaminophen [Eaton] 5-325 mg tablet 1 tab PO Q4-6H PRN (Reason: pain) Qty: 10 RF: 0 ondansetron 4 mg tablet,disintegrating 4 mg PO Q6H PRN (Reason: nausea and vomiting) Qty: 20 RF: 0 tamsulosin [Flomax] 0.4 mg capsule 0.4 mg PO DAILY Qty: 7 RF: 0 ketorolac 10 mg tablet 10 mg PO TID PRN (Reason: pain) Qty: 14 RF: 0 Referrals: Maki Obregon MD [Non-Staff] - Sybil Lane MD [Non-Staff] -
[2019-06-13] MEDS: KETOROLAC 60 MG/2 ML VIAL 30 MG IV (19:45)
[2019-06-13] MEDS: ONDANSETRON 4 MG/2 ML INJ IV (19:45)
[2019-06-13 19:47] LABS: Add Manual Diff / Slide Review NO; Basophils Absolute Auto 100 /uL (0-100); Basophils Percent Auto 0.7 % (0-2); Eosinophils Absolute Auto 200 /uL (0-450); Eosinophils Percent Auto 2.1 % (2-4); Hematocrit 42.5 % (41-53); Hemoglobin 14.7 g/dL (13.5-17.5); Lymphocytes Absolute Auto 1800 /uL (1100-4500); Lymphocytes Percent Auto 17.7 % (25-40); Mean Corpuscular HGB Conc 34.5 % (30-36); Mean Corpuscular Hemoglobin 31.8 PG (26-34); Monocytes Absolute Auto 1000 /uL (0-900); Monocytes Percent Auto 9.7 % (3-14); Neutrophils Absolute Auto 6900 /uL (1500-7000); Neutrophils Percent Auto 69.8 % (50-75); Platelet Count 168 X10^3/uL (150-400); Red Blood Cell Count 4.62 X10^6/uL (4.5-5.9); Red Cell Distribution Width 14.6 % (11.6-14.8); White Blood Cell Count 9.9 X10^3/uL (4.5-11.0)
[2019-06-13] MEDS: SODIUM CHLORIDE 0.9% 1,000 ML 1000 ML IV (19:51)
[2019-06-13] MEDS: MORPHINE 4 MG/ML INJ IV ×2 (19:53→21:19)
[2019-06-13 19:59] LABS: Alanine Aminotransferase 25 IU/L (<50); Albumin 4.5 g/dL (3.5-5.0); Albumin Globulin Ratio 1.3 (1.0-2.8); Alkaline Phosphatase 102 U/L (38-126); Aspartate Aminotransferase 26 IU/L (17-59); Bilirubin Total 0.4 mg/dL (0.2-1.3); Blood Urea Nitrogen 10 mg/dL (9-20); Calcium 9.7 mg/dL (8.4-10.2); Carbon Dioxide 26 mmol/L (22-32); Chloride 108 mmol/L (98-107); Estimated Glomerular Filt Rate > 60.0 mL/min (>60); Globulin 3.6 g/dL (1.7-4.1); Glucose 106 mg/dL (70-100); HEMOLYSIS 17 (0-50); Potassium 3.4 mmol/L (3.4-5.1); Sodium 144 mmol/L (137-145); Total Protein 8.1 g/dL (6.3-8.2)
[2019-06-13 20:00] LABS: Bacteria Urine None Seen; WBC Urine None Seen (0-5/HPF)
[2019-06-13 20:12] LABS: Culture Indicated Urine Cult Not Indicated; RBC Urine 1-5/HPF (0-5/HPF)
[2019-06-13 21:07] VITALS: BP 133/91; PULSE 77; RESP 14; O2SAT 97
[2019-06-13] MEDS: TAMSULOSIN 0.4 MG CAPSULE PO (21:19)
[2019-06-13] MEDS: ONDANSETRON 4 MG ODT PREPACK 1 BOTTLE MISC (21:22)
[2019-06-13] MEDS: OXYCODONE/APAP 5/325 PREPACK 1 BOTTLE MISC (21:22)
--- NOTE | 2019-06-13 21:25 | PC.NURSE ---
Feels similar to previous kidney stones.
== END 2019-06-13 21:39 | disposition home or self-care (01) ==
PROVIDERS: Emergency Provider Nurse Practitioner
DX: N20.0 Calculus of kidney (principal)
CPT/HCPCS: 36415; 80053; 81003; 81015; 85025; 96361; 96374; 96375; 96376; 99284; J1885; J2270; J2405

== ENCOUNTER → 2019-07-12 16:00 | Outpatient (CLI) | payer OTHER, SELFPAY ==
[2019-07-12 16:08] LABS: Bacteria Urine None Seen; WBC Urine None Seen (0-5/HPF)
[2019-07-12 17:24] LABS: Appearance Urine UA CLEAR; Bilirubin Urine UA NEGATIVE (NEGATIVE); Color Urine UA YELLOW; Glucose Urine UA NEGATIVE (Negative); Ketones Urine UA NEGATIVE (NEGATIVE); Leukocyte Esterase Urine UA NEGATIVE (NEGATIVE); Nitrite Urine UA NEGATIVE (Negative); Occult Blood Urine UA TRACE-LYSED (Negative); Protein Urine UA NEGATIVE (Negative); Specific Gravity Urine UA 1.025 (1.000-1.035); Urobilinogen Urine UA 0.2 E.U./dL (0.2); pH Urine UA 6.5 (4.5-8.0)
[2019-07-12 17:47] LABS: Culture Indicated Urine Cult Not Indicated; RBC Urine 0-1/HPF (0-5/HPF)
== END ==
PROVIDERS: PCP Family Medicine; Referring Provider Physician Assistant; Visit Provider Physician Assistant
DX: N20.0 Calculus of kidney (principal)
CPT/HCPCS: 81001

== ENCOUNTER 2021-02-19 17:50 | Emergency (ER) | payer OTHER, SELFPAY ==
[2021-02-19] VITALS (9 sets, daily range): BP systolic 127–170; BP diastolic 79–95; PULSE 69–77; RESP 16–21; TEMP 36.8; O2SAT 95–99; BMI 29.7
[2021-02-19 18:36] LABS: Bacteria Urine None Seen; Culture Indicated Urine Cult Not Indicated; RBC Urine 1-5/HPF (0-5/HPF); WBC Urine 1-5/HPF (0-5/HPF)
[2021-02-19 19:07] LABS: Add Manual Diff / Slide Review NO; Basophils Absolute Auto 0 /uL (0-100); Basophils Percent Auto 0.3 % (0-2); Eosinophils Absolute Auto 100 /uL (0-450); Eosinophils Percent Auto 1.3 % (2-4); Hematocrit 43.4 % (41-53); Hemoglobin 15.3 g/dL (13.5-17.5); Lymphocytes Absolute Auto 700 /uL (1100-4500); Lymphocytes Percent Auto 9.9 % (25-40); Mean Corpuscular HGB Conc 35.1 % (30-36); Mean Corpuscular Hemoglobin 31.5 PG (26-34); Mean Corpuscular Volume 89.7 fL (80-100); Monocytes Absolute Auto 600 /uL (0-900); Monocytes Percent Auto 8.7 % (3-14); Neutrophils Absolute Auto 5600 /uL (1500-7000); Neutrophils Percent Auto 79.8 % (50-75); Platelet Count 166 X10^3/uL (150-400); Red Blood Cell Count 4.84 X10^6/uL (4.5-5.9); Red Cell Distribution Width 13.6 % (11.6-14.8)
[2021-02-19 19:25] LABS: Alanine Aminotransferase 22 IU/L (<50); Albumin 4.6 g/dL (3.5-5.0); Albumin Globulin Ratio 1.4 (1.0-2.8); Alkaline Phosphatase 97 U/L (38-126); Aspartate Aminotransferase 25 IU/L (17-59); BUN Creatinine Ratio 18.2 (6-22); Bilirubin Total 0.8 mg/dL (0.2-1.3); Blood Urea Nitrogen 16 mg/dL (9-20); Calcium 9.3 mg/dL (8.4-10.2); Carbon Dioxide 26 mmol/L (22-32); Chloride 101 mmol/L (98-107); Estimated Glomerular Filt Rate > 60.0 mL/min (>60); Globulin 3.2 g/dL (1.7-4.1); Glucose 87 mg/dL (70-100); HEMOLYSIS < 15 (0-50); Lipase 28 U/L (23-300); Potassium 4.1 mmol/L (3.4-5.1); Sodium 137 mmol/L (137-145); Total Protein 7.8 g/dL (6.3-8.2)
--- NOTE | 2021-02-19 20:30 | ED_ITS ---
HPI - General Adult General Chief complaint: Abdominal Pain Stated complaint: thinks another kidney stone Time Seen by Provider: 02/19/21 18:20 Source: patient Mode of arrival: Ambulatory Limitations: no limitations History of Present Illness HPI narrative: 50-year-old gentleman with a history of prior kidney stones most recently about 2 years ago. His pain with the kidney stones always presents is abdominal rather than flank pain. At 2:00 p.m. today he began noticing increasing gastric upset and then developed left-sided abdominal pain summer similar to that of his prior kidney stone. He describes the pain initially as a 10/10 and then coming in colicky waves getting to a 6-7 in between the severe episodes. He has had some nausea but no vomiting an episode of diarrhea associated with the onset of pain. Describes no fevers, cough, chills, palpitations, chest pain. Related Data Home Medications Medication Instructions Recorded Confirmed bupropion HCl 100 mg tablet,12 hr 300 mg PO DAILY #0 05/12/17 sustained-release (Wellbutrin SR) Previous Rx's Medication Instructions Recorded clindamycin HCl 300 mg capsule 300 mg PO Q6H #28 cap 05/12/17 hydrocodone 7.5 mg-acetaminophen 1 tab PO Q6HP PRN #12 tab 05/12/17 325 mg tablet ([place]) hydrocodone 5 mg-acetaminophen 325 1 tab PO Q4-6H PRN #10 tab 05/11/19 mg tablet ([place]) ketorolac 10 mg tablet 10 mg PO TID PRN #14 tab 05/11/19 ondansetron 4 mg disintegrating 4 mg PO Q6H PRN #20 tab 05/11/19 tablet tamsulosin 0.4 mg capsule (Flomax) 0.4 mg PO DAILY #7 cap 05/11/19 ondansetron 4 mg disintegrating 4 mg PO Q6H PRN #14 tab 06/13/19 tablet oxycodone-acetaminophen 5 mg-325 1 tab PO Q4-6H PRN #20 tab 06/13/19 mg tablet (Percocet) tamsulosin 0.4 mg capsule (Flomax) 0.4 mg PO DAILY #20 cap 06/13/19 Allergies Allergy/AdvReac Type Severity Reaction Status Date / Time Sulfa (Sulfonamide Allergy Unknown Verified 06/13/19 18:17 Antibiotics) [SULFA (SULFONAMIDE ANTIBIOTICS)] Review of Systems Review of Systems Narrative: Remainder of complete review of systems is otherwise unremarkable except for that included in the HPI. Patient History Medical History (Updated 02/19/21 @ 23:47 by Venus Menard MD) History of kidney stones Social History Smoking Status: Never smoker Smoking Status: Never smoker Substance Use Type: marijuana Exam Narrative Exam Narrative: General: Healthy appearing, in no acute distress. Able to give a complete and coherent history. Well-nourished well-developed HEENT: Moist mucous membranes, normal sclera with reactive pupils, Respiratory: Lungs are clear to auscultation, no wheezing no rales no rhonchi. Full and symmetrical air movement Cardiac: Regular rate and rhythm no murmurs no bruits Abdomen: Soft, tender along the left entire portion of the abdomen without rebound or guarding good bowel tones, no flank pain Skin: Warm and dry, no rashes Neurologic: Grossly neurologically intact with no obvious asymmetries or abnormalities Extremities: No trauma, well perfused Psych: Cooperative, appropriate insight and affect Initial Vital Signs Initial Vital Signs: Vital Signs Temperature 98.3 F 02/19/21 17:55 Pulse Rate 73 02/19/21 17:55 Respiratory Rate 20 02/19/21 17:55 Blood Pressure 170/95 H 02/19/21 17:55 Pulse Oximetry 99 02/19/21 17:55 Course Orders Ordered: ED Orders 02/19/21 18:00 Urine Microscopic Stat 02/19/21 18:05 EKG-12 Lead Stat 02/19/21 19:00 Complete Blood Count AUTO DIFF Stat Comprehensive Metabolic Panel Stat Lipase Stat 02/19/21 20:35 CT kidney ureter bladder (KUB) Stat Hydromorphone HCl (Hydromorphone 0.5 Mg Inj) 0.5 mg IV Q15MIN PRN PRN Reason: Pain, Discontinued Medications Sodium Chloride (Normal Saline 0.9%) 1,000 mls @ 1,000 mls/hr IV BOLUS ONE Stop: 02/19/21 21:34 Last Infusion: 02/19/21 22:05 Dose: 0 mls/hr Documented by: Admin: 02/19/21 20:51 Dose: 1,000 mls/hr Documented by: REGINALD Ketorolac Tromethamine (Ketorolac 30 Mg/Ml Vial) 15 mg IV NOW ONE Stop: 02/19/21 20:36 Last Admin: 02/19/21 20:51 Dose: 15 mg Documented by: REGINALD Vital Signs Vital signs: Vital Signs - 8 hr 02/19/21 17:55 02/19/21 20:16 02/19/21 20:20 Temperature 98.3 F Pulse Rate 73 74 77 Respiratory Rate 20 20 17 Blood Pressure 170/95 H 151/91 H 127/79 Pulse Oximetry 99 97 97 02/19/21 20:29 02/19/21 20:30 02/19/21 21:00 Temperature Pulse Rate 74 69 71 Respiratory Rate 20 16 21 Blood Pressure 127/79 137/86 Pulse Oximetry 97 95 97 02/19/21 21:30 02/19/21 22:00 Temperature Pulse Rate 73 71 Respiratory Rate 18 18 Blood Pressure Pulse Oximetry 98 98 Medical Decision Making Lab Data Result diagrams: 02/19/21 19:00 02/19/21 19:00 Labs: Lab Results 02/19/21 02/19/21 02/19/21 Range/Units 18:00 19:00 19:00 WBC 7.0 (4.5-11.0) X10^3/uL RBC 4.84 (4.5-5.9) X10^6/uL Hgb 15.3 (13.5-17.5) g/dL Hct 43.4 (41-53) % MCV 89.7 (80-100) fL MCH 31.5 (26-34) PG MCHC 35.1 (30-36) % RDW 13.6 (11.6-14.8) % Plt Count 166 (150-400) X10^3/uL Neut % (Auto) 79.8 H (50-75) % Lymph % (Auto) 9.9 L (25-40) % Mason % (Auto) 8.7 (3-14) % Eos % (Auto) 1.3 L (2-4) % Baso % (Auto) 0.3 (0-2) % Neut # (Auto) 5600 (1980-0745) /uL Lymph # (Auto) 700 L (4243-6034) /uL Mason # (Auto) 600 (0-900) /uL Eos # (Auto) 100 (0-450) /uL Baso # (Auto) 0 (0-100) /uL Sodium 137 (137-145) mmol/L Potassium 4.1 (3.4-5.1) mmol/L Chloride 101 (98-107) mmol/L Carbon Dioxide 26 (22-32) mmol/L BUN 16 (9-20) mg/dL Creatinine 0.88 (0.66-1.25) mg/dL Estimated GFR > 60.0 (>60) mL/min BUN/Creatinine Ratio 18.2 (6-22) Glucose 87 (70-100) mg/dL Calcium 9.3 (8.4-10.2) mg/dL Total Bilirubin 0.8 (0.2-1.3) mg/dL AST 25 (17-59) IU/L ALT 22 (<50) IU/L Alkaline Phosphatase 97 (38-126) U/L Total Protein 7.8 (6.3-8.2) g/dL Albumin 4.6 (3.5-5.0) g/dL Globulin 3.2 (1.7-4.1) g/dL Albumin/Globulin Ratio 1.4 (1.0-2.8) Lipase 28 (23-300) U/L Urine RBC 1-5/hpf (0-5/HPF) Urine WBC 1-5/hpf (0-5/HPF) Urine Bacteria None seen (None) Ur Culture Indicated? Cult not indicated Urine Dip Bedside Urine Glucose Negative Bedside Urine Bilirubin - Negative Bedside Urine Ketone + 15 Urine Specific [place] 1.030 Bedside Urine Occult Blood + Bedside Urine pH 6.0 Bedside Urine Protein +/- 15 Bedside Urine Urobilinogen - Negative Bedside Urine Nitrite - Negative Bedside Urine Leukocytes - Negative Esterase Point of care testing: Urine Dip Bedside Urine Glucose Negative Bedside Urine Bilirubin - Negative Bedside Urine Ketone + 15 Urine Specific [place] 1.030 Bedside Urine Occult Blood + Bedside Urine pH 6.0 Bedside Urine Protein +/- 15 Bedside Urine Urobilinogen - Negative Bedside Urine Nitrite - Negative Bedside Urine Leukocytes - Negative Esterase Imaging Data CT scan - abdomen/pelvis: Radiologist's Impression: FINDINGS: Image quality:? Excellent.? ? Lung bases:? Lung bases are clear.? Heart size is normal. ? Solid organs:? Liver: The liver has no mass or intrahepatic biliary ductal dilatation. The portal vein and hepatic veins are patent. Biliary: The gallbladder has no gallstones, pericholecystic fluid, gallbladder wall thickening, or surrounding inflammatory change. Pancreas: The pancreas has no mass or ductal dilatation. There is no surrounding inflammation. Spleen: Normal size. There are no masses. Adrenals: No hypertrophy or nodules. Kidneys: No obstructive calculus or hydronephrosis.? No solid mass. No cystic mass. ? Peritoneum and bowel:? The distal esophagus and stomach are normal.? The small bowel has a normal caliber and appearance. The terminal ileum is normal. The large bowel has a normal caliber and appearance.? The appendix is not definitively visualized; however there are no secondary findings to suggest acute appendicitis.? No free fluid or air.? ? Nodes and vessels:? No retroperitoneal or mesenteric adenopathy by size criteria.? Aorta and inferior vena cava are normal in size.? ? Miscellaneous:? There is a small fat containing left inguinal hernia. ? PELVIS:? Genitourinary:? The bladder has no wall thickening or mass. No bladder calcifications. ? Miscellaneous:? No inguinal hernias or adenopathy.? ? Bones:? No suspicious bony lesions.? No vertebral body compression fractures.? ? IMPRESSION:? 1. No acute abdominal or pelvic abnormality. 2. No kidney stones.? ? ? Dictated by: Kobi Joseph M.D. on 02/19/2021 at 21:08? ?? [facility] Narrative Medical decision making narrative: 50-year-old gentleman with prior kidney stones presents with signs and symptoms that were noted with previous stone. CT scan does not show a kidney stone, diverticulitis, appendicitis, pyelonephritis, hydronephrosis or offer any other explanation for the abdominal pain. At this point the pain has almost entirely resolved. There is no evidence of bladder infection or abdominal aortic abnormality. Findings are reviewed with patient questions are answered and he is safe for home discharge Discharge Plan Departure Patient Disposition: Home Clinical Impression: Abdominal pain Instructions: DI for Abdominal Pain-Adult Activity Restrictions/Additional Instructions: Thank you for coming in today Your CT scan was very reassuring. It did not show any evidence for kidney stone, kidney infection, diverticulitis or other masses or anything that might explain the pain that you are experiencing. Your lab work was equally reassuring. There is no evidence of overwhelming infection and her kidney function is appropriate. If you have new, changing or worsening symptoms please feel free to return to the ER Prescriptions: No Action bupropion HCl [Wellbutrin SR] 100 MG tablet extended release 12 hr 300 mg PO DAILY Qty: 0 RF: 0 clindamycin HCl 300 MG capsule 300 mg PO Q6H Qty: 28 RF: 0 hydrocodone-acetaminophen [[place]] 7.5 MG/325 MG tablet 1 tab PO Q6HP PRNQty: 12 RF: 0 hydrocodone-acetaminophen [[place]] 5-325 mg tablet 1 tab PO Q4-6H PRN (Reason: pain) Qty: 10 RF: 0 ondansetron 4 mg tablet,disintegrating 4 mg PO Q6H PRN (Reason: nausea and vomiting) Qty: 20 RF: 0 tamsulosin [Flomax] 0.4 mg capsule 0.4 mg PO DAILY Qty: 7 RF: 0 ketorolac 10 mg tablet 10 mg PO TID PRN (Reason: pain) Qty: 14 RF: 0 oxycodone-acetaminophen [Percocet] 5-325 mg tablet 1 tab PO Q4-6H PRN (Reason: pain) Qty: 20 RF: 0 ondansetron 4 mg tablet,disintegrating 4 mg PO Q6H PRN (Reason: nausea and vomiting) Qty: 14 RF: 0 tamsulosin [Flomax] 0.4 mg capsule 0.4 mg PO DAILY Qty: 20 RF: 0 Referrals: Eleanor Brody DO [Primary Care Provider] -
--- NOTE | 2021-02-19 20:35 | DI.CT.S_ITS ---
PROCEDURE: CT KIDNEY URETER BLADDER (KUB) INDICATIONS: suspected kidney stone TECHNIQUE: Axial sections were acquired from the lung bases to the pubic symphysis. Coronal and sagittal reformats were performed. For radiation dose reduction, the following was used: automated exposure control, adjustment of mA and/or kV according to patient size. COMPARISON: [facility], CT, CT KIDNEY URETER BLADDER (KUB), 05/11/2019, 15:41. FINDINGS: Image quality: Excellent. Lung bases: Lung bases are clear. Heart size is normal. Solid organs: Liver: The liver has no mass or intrahepatic biliary ductal dilatation. The portal vein and hepatic veins are patent. Biliary: The gallbladder has no gallstones, pericholecystic fluid, gallbladder wall thickening, or surrounding inflammatory change. Pancreas: The pancreas has no mass or ductal dilatation. There is no surrounding inflammation. Spleen: Normal size. There are no masses. Adrenals: No hypertrophy or nodules. Kidneys: No obstructive calculus or hydronephrosis. No solid mass. No cystic mass. Peritoneum and bowel: The distal esophagus and stomach are normal. The small bowel has a normal caliber and appearance. The terminal ileum is normal. The large bowel has a normal caliber and appearance. The appendix is not definitively visualized; however there are no secondary findings to suggest acute appendicitis. No free fluid or air. Nodes and vessels: No retroperitoneal or mesenteric adenopathy by size criteria. Aorta and inferior vena cava are normal in size. Miscellaneous: There is a small fat containing left inguinal hernia. PELVIS: Genitourinary: The bladder has no wall thickening or mass. No bladder calcifications. Miscellaneous: No inguinal hernias or adenopathy. Bones: No suspicious bony lesions. No vertebral body compression fractures. IMPRESSION: 1. No acute abdominal or pelvic abnormality. 2. No kidney stones. Dictated by: Kobi Joseph M.D. on 02/19/2021 at 21:08 Approved by: Kobi Joseph M.D. on 02/19/2021 at 21:12
[2021-02-19] MEDS: KETOROLAC 30 MG/ML VIAL 15 MG IV (20:51)
[2021-02-19] MEDS: SODIUM CHLORIDE 0.9% 1,000 ML 1000 ML IV (20:51)
== END 2021-02-19 23:54 | disposition home or self-care (01) ==
PROVIDERS: Emergency Medicine; Emergency Provider Emergency Medicine; PCP Family Medicine
DX: R10.9 Unspecified abdominal pain (principal); R11.0 Nausea; R19.7 Diarrhea, unspecified; Z87.442 Personal history of urinary calculi
CPT/HCPCS: 36415; 74176; 80053; 81003; 81015; 83690; 85025; 93005; 93010; 96361; 96374; 99284; J1885

== ENCOUNTER 2021-03-03 18:23 | Emergency (ER) | payer OTHER, SELFPAY ==
[2021-03-03] VITALS (11 sets, daily range): BP systolic 140–155; BP diastolic 89–91; PULSE 81–109; RESP 14–20; TEMP 36.9; O2SAT 93–98; BMI 30.7
--- NOTE | 2021-03-03 18:47 | ED.ALCOHOL ---
HPI - Alcohol General Chief Complaint: Toxicology Problem Stated Complaint: withdrawl symptoms x2 days Time Seen by Provider: 03/03/21 18:47 Source: patient and family Mode of arrival: Ambulatory Limitations: no limitations History of Present Illness HPI narrative: This is a 50-year-old male who arrives with complaint of withdrawal symptoms. Patient states he was sober for quite some time he began drinking about 4 5 days ago and was drinking a 5th daily. He stopped sometime earlier today. He is little bit unclear about exact time but states this morning. Patient denies any other medical issues besides appropriate in, gabapentin for mood and sleep dicyclomine or Bentyl for his stomach. Patient denies any major surgeries. He denies any allergies to medications. He states uses THC sometimes, denies tobacco or other illicit. Patient states he has gone through withdrawal multiple times in the past he has never had seizures he has had hallucinations in the past. States his main goal is symptom control. He is not particularly interested in discussing why he started drinking again. Discussed detox, inpatient versus returning home and patient states his main concern is symptom control to stop drinking and does not feel strongly about any of these choices. He states he has had phenobarbital in the past and responded well to it. Patient states he feels shaky, he has had some nausea no active vomiting. He just feels generally unwell he denies other symptoms currently. Related Data Home Medications Medication Instructions Recorded Confirmed bupropion HCl 100 mg tablet,12 hr 300 mg PO DAILY #0 05/12/17 sustained-release (Wellbutrin SR) Previous Rx's Medication Instructions Recorded clindamycin HCl 300 mg capsule 300 mg PO Q6H #28 cap 05/12/17 hydrocodone 7.5 mg-acetaminophen 1 tab PO Q6HP PRN #12 tab 05/12/17 325 mg tablet ([place]) hydrocodone 5 mg-acetaminophen 325 1 tab PO Q4-6H PRN #10 tab 05/11/19 mg tablet ([place]) ketorolac 10 mg tablet 10 mg PO TID PRN #14 tab 05/11/19 ondansetron 4 mg disintegrating 4 mg PO Q6H PRN #20 tab 05/11/19 tablet tamsulosin 0.4 mg capsule (Flomax) 0.4 mg PO DAILY #7 cap 05/11/19 ondansetron 4 mg disintegrating 4 mg PO Q6H PRN #14 tab 06/13/19 tablet oxycodone-acetaminophen 5 mg-325 1 tab PO Q4-6H PRN #20 tab 06/13/19 mg tablet (Percocet) tamsulosin 0.4 mg capsule (Flomax) 0.4 mg PO DAILY #20 cap 06/13/19 lorazepam 1 mg tablet (Ativan) 1 mg PO QID #10 tab 03/04/21 Allergies Allergy/AdvReac Type Severity Reaction Status Date / Time Sulfa (Sulfonamide Allergy Unknown Verified 03/03/21 18:37 Antibiotics) [SULFA (SULFONAMIDE ANTIBIOTICS)] Review of Systems Review of Systems ROS Unobtainable: All systems reviewed & are unremarkable except as noted in HPI and below Patient History Medical History (Updated 03/03/21 @ 19:24 by Karis Wilder DO) History of kidney stones Social History Smoking Status: Never smoker Smoking Status: Never smoker alcohol intake frequency: 3 or more drinks per day Alcohol type: hard liquor Substance Use Type: marijuana Exam Narrative Exam Narrative: GEN: well nourished, well appearing male, alert and oriented x 3, patient appears to be in mild distress. No diaphoresis. HEENT: Atraumatic, pupils are equal round reactive to light, extraocular movements are intact, nares are clear. HEART: Regular rate and rhythm without murmur, clicks, rubs. LUNGS:Lungs clear to auscultation, no wheezes, rales, crackles, chest moves symmetrically ABD:bowel sounds normal, soft, non-tender, no guarding, rebound, rigidity, no masses noted, no hepatosplenomegaly :No CVA tenderness MSCL: Non-tender, no muscle atrophy, muscles strength 5/5 upper and lower extremities, full range of motion, normal gait NEURO:CN 2-12 intact, sensation normal, no tremor noted. SKIN: No rash, erythema or other changes. Initial Vital Signs Initial Vital Signs: Vital Signs Temperature 98.5 F 03/03/21 18:25 Pulse Rate 109 H 03/03/21 18:25 Respiratory Rate 20 03/03/21 18:25 Blood Pressure 155/91 H 03/03/21 18:25 Pulse Oximetry 98 03/03/21 18:25 Course Orders Ordered: ED Orders 03/03/21 19:10 Acetaminophen Stat Complete Blood Count AUTO DIFF Stat Comprehensive Metabolic Panel Stat Ethanol (ETOH) Stat Free T4, Direct Thyroxine Stat Salicylate Stat Thyroid Stimulating Hormone Stat 03/03/21 19:20 Urine Drug Screen, Rapid Stat Discontinued Medications Acetaminophen (Acetaminophen 325 Mg Tablet) 975 mg PO NOW ONE Stop: 03/03/21 19:56 Last Admin: 03/03/21 19:58 Dose: 975 mg Documented by: DANE Hydrocodone Bitart/Acetaminophen (Hydrocodone/Acet 5/325 Tablet) 2 tab PO NOW ONE Stop: 03/04/21 00:29 Last Admin: 03/04/21 00:36 Dose: 2 tab Documented by: ALVIN Lorazepam (Lorazepam 0.5 Mg Tablet) 1 mg PO NOW ONE Stop: 03/04/21 01:09 Last Admin: 03/04/21 01:11 Dose: 1 mg Documented by: DANE Ondansetron HCl (Ondansetron 4 Mg/2 Ml Inj) 4 mg IV NOW ONE Stop: 03/04/21 00:29 Last Admin: 03/04/21 00:36 Dose: 4 mg Documented by: ALVIN Phenobarbital (Phenobarbital 65 Mg/Ml Vial) 260 mg IV NOW ONE Stop: 03/03/21 19:19 Last Admin: 03/03/21 19:25 Dose: 260 mg Documented by: DANE Reevaluation(s) Reevaluation #1: Patient on recheck, sleeping comfortably. He awakens easily would like to return maldonado and appears much more comfortable. Patient I discussed he does not meet criteria for inpatient here at [facility] we do not have a detox unit. He was offered detox at other facilities if we can find a bed. He states he does not think there will likely be a bed available but is open to the option and will talk to them. We did discuss if he prefers he can be discharged home today. We did review his labs and all questions answered. Time: 21:21 Reevaluation #2: Patient states he feels nauseated he states he hurts all over and has a headache. He has not been vomiting. He has been sleeping in the room. We have tried multiple facilities they do not have any bed availability. Discussed with patient at this time is not appear he meets criteria for medical admission. We did discuss they can continue to seek placement and a bed. Patient has normal vitals with CIWA of 6-7. Time: 00:29 Vital Signs Vital signs: Vital Signs - 8 hr 03/03/21 18:54 03/03/21 19:31 03/03/21 20:00 Pulse Rate 96 H 90 95 H Respiratory Rate 17 14 Blood Pressure 140/89 Pulse Oximetry 97 94 98 03/03/21 20:30 03/03/21 21:00 03/03/21 21:30 Pulse Rate 85 81 84 Respiratory Rate Blood Pressure Pulse Oximetry 94 95 96 03/03/21 22:00 03/03/21 22:30 03/03/21 23:00 Pulse Rate 82 82 84 Respiratory Rate Blood Pressure Pulse Oximetry 93 94 94 03/03/21 23:32 03/04/21 00:30 Pulse Rate 95 H 83 Respiratory Rate Blood Pressure 134/88 Pulse Oximetry 94 95 MDM - Alcohol Lab Data Result diagrams: 03/03/21 19:10 03/03/21 19:10 Labs: Lab Results 03/03/21 03/03/21 03/03/21 Range/Units 19:10 19:10 19:10 WBC 6.2 (4.5-11.0) X10^3/uL RBC 4.85 (4.5-5.9) X10^6/uL Hgb 15.1 (13.5-17.5) g/dL Hct 43.1 (41-53) % MCV 88.9 (80-100) fL MCH 31.2 (26-34) PG MCHC 35.1 (30-36) % RDW 13.7 (11.6-14.8) % Plt Count 174 (150-400) X10^3/uL Neut % (Auto) 60.9 (50-75) % Lymph % (Auto) 28.2 (25-40) % [place] % (Auto) 8.4 (3-14) % Eos % (Auto) 1.5 L (2-4) % Baso % (Auto) 1.0 (0-2) % Neut # (Auto) 3800 (3991-8052) /uL Lymph # (Auto) 1800 (4171-6210) /uL [place] # (Auto) 500 (0-900) /uL Eos # (Auto) 100 (0-450) /uL Baso # (Auto) 100 (0-100) /uL Sodium 145 (137-145) mmol/L Potassium 3.6 (3.4-5.1) mmol/L Chloride 107 (98-107) mmol/L Carbon Dioxide 28 (22-32) mmol/L BUN 16 (9-20) mg/dL Creatinine 0.74 (0.66-1.25) mg/dL Estimated GFR > 60.0 (>60) mL/min BUN/Creatinine Ratio 21.6 (6-22) Glucose 93 (70-100) mg/dL Calcium 9.0 (8.4-10.2) mg/dL Total Bilirubin 0.5 (0.2-1.3) mg/dL AST 35 (17-59) IU/L ALT 36 (<50) IU/L Alkaline Phosphatase 78 (38-126) U/L Total Protein 7.4 (6.3-8.2) g/dL Albumin 4.4 (3.5-5.0) g/dL Globulin 3.0 (1.7-4.1) g/dL Albumin/Globulin Ratio 1.5 (1.0-2.8) TSH 0.667 (0.47-4.68) uIU/mL Free T4 0.73 L (0.78-2.19) ng/dL Salicylates < 1.0 (<20) mg/dL U Opiates 300ng/mL cut (Negative) Ur Oxycodone Screen (Negative) Urine Methadone Screen (Negative) Acetaminophen < 10 L (10-30) ug/mL Ur Barbiturates Screen (Negative) U Tricyclic Antidepress (Negative) Ur Phencyclidine Scrn (Negative) Ur Amphetamines Screen (Negative) U Methamphetamines Scrn (Negative) Ur MDMA Scrn (Ecstasy) (Negative) U Benzodiazepines Scrn (Negative) Urine Cocaine Screen (Negative) U Marijuana (THC) Screen (Negative) Ethyl Alcohol 240 H ( - 10) mg/dL 03/03/21 Range/Units 19:20 WBC (4.5-11.0) X10^3/uL RBC (4.5-5.9) X10^6/uL Hgb (13.5-17.5) g/dL Hct (41-53) % MCV (80-100) fL MCH (26-34) PG MCHC (30-36) % RDW (11.6-14.8) % Plt Count (150-400) X10^3/uL Neut % (Auto) (50-75) % Lymph % (Auto) (25-40) % [place] % (Auto) (3-14) % Eos % (Auto) (2-4) % Baso % (Auto) (0-2) % Neut # (Auto) (7509-8595) /uL Lymph # (Auto) (2527-4454) /uL [place] # (Auto) (0-900) /uL Eos # (Auto) (0-450) /uL Baso # (Auto) (0-100) /uL Sodium (137-145) mmol/L Potassium (3.4-5.1) mmol/L Chloride (98-107) mmol/L Carbon Dioxide (22-32) mmol/L BUN (9-20) mg/dL Creatinine (0.66-1.25) mg/dL Estimated GFR (>60) mL/min BUN/Creatinine Ratio (6-22) Glucose (70-100) mg/dL Calcium (8.4-10.2) mg/dL Total Bilirubin (0.2-1.3) mg/dL AST (17-59) IU/L ALT (<50) IU/L Alkaline Phosphatase (38-126) U/L Total Protein (6.3-8.2) g/dL Albumin (3.5-5.0) g/dL Globulin (1.7-4.1) g/dL Albumin/Globulin Ratio (1.0-2.8) TSH (0.47-4.68) uIU/mL Free T4 (0.78-2.19) ng/dL Salicylates (<20) mg/dL U Opiates 300ng/mL cut Negative (Negative) Ur Oxycodone Screen Negative (Negative) Urine Methadone Screen Negative (Negative) Acetaminophen (10-30) ug/mL Ur Barbiturates Screen Negative (Negative) U Tricyclic Antidepress Negative (Negative) Ur Phencyclidine Scrn Negative (Negative) Ur Amphetamines Screen Negative (Negative) U Methamphetamines Scrn Negative (Negative) Ur MDMA Scrn (Ecstasy) Negative (Negative) U Benzodiazepines Scrn Negative (Negative) Urine Cocaine Screen Negative (Negative) U Marijuana (THC) Screen Positive H (Negative) Ethyl Alcohol ( - 10) mg/dL Urine Dip Bedside Urine Glucose Negative Bedside Urine Bilirubin - Negative Bedside Urine Ketone - Negative Urine Specific [place] 1.020 Bedside Urine Occult Blood + Bedside Urine pH 6 Bedside Urine Protein - Negative Bedside Urine Urobilinogen - Negative Bedside Urine Nitrite - Negative Bedside Urine Leukocytes - Negative Esterase MDM Narrative Medical decision making narrative: 50-year-old male who arrives with complaint of alcohol withdrawal. Patient's labs reassuring, he is positive for THC. Alcohol is 240. Patient's most recent CIWA was 6, he has not been tachycardic he is not tremulous or having any symptoms at this time that would require admission. We discussed detox versus outpatient medications. Patient does not meet criteria for admission at this time. CIWA at maximum is 7 any is able to fall back asleep. Patient was given 2 doses of [place] as he states he is having a lot of headache at this time. Discussed with patient and his at this time we are not able to find a detox bed and they were encouraged to continue looking. Return precautions were discussed and patient is welcomed to return at any time for re-evaluation or attempted placement. Discharge Plan Departure Patient Disposition: Home Clinical Impression: Alcohol abuse with withdrawal Instructions: Drug and Alcohol Withdrawal Activity Restrictions/Additional Instructions: Follow up with your physician for recheck and options. I would also recommend that you continue to call to look for detox beds. You can continue to search for beds. They can help with resources or additional medications as needed. If decide you are interested in detox you can contact Debra our ER psychotherapist social worker for resources at [phone]. You may take prescription as prescribed. This medication can you sleepy do not drive, perform hazardous activities or make any major decisions while taking it. Prescription sent to [facility] in [place]. Please return for altered mental status confusion, hallucinations, seizure activity, if you are having worsening tremors, persistent vomiting, diarrhea, lightheadedness or passing out, chest pain or shortness of breath or other new or concerning symptoms. Prescriptions: New lorazepam [Ativan] 1 mg tablet 1 mg PO QID Qty: 10 RF: 0 No Action bupropion HCl [Wellbutrin SR] 100 MG tablet extended release 12 hr 300 mg PO DAILY Qty: 0 RF: 0 clindamycin HCl 300 MG capsule 300 mg PO Q6H Qty: 28 RF: 0 hydrocodone-acetaminophen [[place]] 7.5 MG/325 MG tablet 1 tab PO Q6HP PRNQty: 12 RF: 0 hydrocodone-acetaminophen [[place]] 5-325 mg tablet 1 tab PO Q4-6H PRN (Reason: pain) Qty: 10 RF: 0 ondansetron 4 mg tablet,disintegrating 4 mg PO Q6H PRN (Reason: nausea and vomiting) Qty: 20 RF: 0 tamsulosin [Flomax] 0.4 mg capsule 0.4 mg PO DAILY Qty: 7 RF: 0 ketorolac 10 mg tablet 10 mg PO TID PRN (Reason: pain) Qty: 14 RF: 0 oxycodone-acetaminophen [Percocet] 5-325 mg tablet 1 tab PO Q4-6H PRN (Reason: pain) Qty: 20 RF: 0 ondansetron 4 mg tablet,disintegrating 4 mg PO Q6H PRN (Reason: nausea and vomiting) Qty: 14 RF: 0 tamsulosin [Flomax] 0.4 mg capsule 0.4 mg PO DAILY Qty: 20 RF: 0 Referrals: Eleanor Brody DO [Primary Care Provider] -
--- NOTE | 2021-03-03 18:58 | PC.NURSE ---
CIWA of 2
--- NOTE | 2021-03-03 19:01 | PC.NURSE ---
Patient states he hasn't had a drink in over 10 hrs, states patient has been drinking all day. states patient drinks 18 oack of beer and up to 2 750ml bottles of vodka daily. Family staged an intervention today.
[2021-03-03 19:20] LABS: Add Manual Diff / Slide Review NO; Basophils Absolute Auto 100 /uL (0-100); Eosinophils Absolute Auto 100 /uL (0-450); Eosinophils Percent Auto 1.5 % (2-4); Hematocrit 43.1 % (41-53); Hemoglobin 15.1 g/dL (13.5-17.5); Lymphocytes Absolute Auto 1800 /uL (1100-4500); Lymphocytes Percent Auto 28.2 % (25-40); Mean Corpuscular HGB Conc 35.1 % (30-36); Mean Corpuscular Hemoglobin 31.2 PG (26-34); Mean Corpuscular Volume 88.9 fL (80-100); Monocytes Absolute Auto 500 /uL (0-900); Monocytes Percent Auto 8.4 % (3-14); Neutrophils Absolute Auto 3800 /uL (1500-7000); Neutrophils Percent Auto 60.9 % (50-75); Platelet Count 174 X10^3/uL (150-400); Red Blood Cell Count 4.85 X10^6/uL (4.5-5.9); Red Cell Distribution Width 13.7 % (11.6-14.8); White Blood Cell Count 6.2 X10^3/uL (4.5-11.0)
[2021-03-03] MEDS: PHENobarbital 65 MG/ML VIAL 260 MG IV (19:25)
[2021-03-03 19:26] LABS: UR Morphine/Opiate cutoff 300 Negative (Negative); Ur Creatinine Normal (Normal); Ur Specific Gravity Normal (Normal); Urine Amphetamines Negative (Negative); Urine Barbiturates Negative (Negative); Urine Benzodiazepines Negative (Negative); Urine Cocaine Negative (Negative); Urine MDMA Negative (Negative); Urine Methadone Negative (Negative); Urine Methamphetamines Negative (Negative); Urine Oxycodone Negative (Negative); Urine Phencyclidine Negative (Negative); Urine Tetrahydrocannabinol Positive (Negative); Urine Tricyclic Antidepressant Negative (Negative); Urine pH Normal (Normal)
[2021-03-03 19:32] LABS: Acetaminophen < 10 ug/mL (10-30); Alanine Aminotransferase 36 IU/L (<50); Albumin 4.4 g/dL (3.5-5.0); Albumin Globulin Ratio 1.5 (1.0-2.8); Alkaline Phosphatase 78 U/L (38-126); Aspartate Aminotransferase 35 IU/L (17-59); BUN Creatinine Ratio 21.6 (6-22); Bilirubin Total 0.5 mg/dL (0.2-1.3); Blood Urea Nitrogen 16 mg/dL (9-20); Carbon Dioxide 28 mmol/L (22-32); Chloride 107 mmol/L (98-107); Estimated Glomerular Filt Rate > 60.0 mL/min (>60); Ethanol (ETOH) 240 mg/dL; Glucose 93 mg/dL (70-100); HEMOLYSIS < 15 (0-50); Potassium 3.6 mmol/L (3.4-5.1); Salicylate < 1.0 mg/dL (<20); Sodium 145 mmol/L (137-145); Total Protein 7.4 g/dL (6.3-8.2)
[2021-03-03] MEDS: ACETAMINOPHEN 325 MG TABLET 975 MG PO (19:58)
[2021-03-03 20:08] LABS: Free T4, Direct Thyroxine 0.73 ng/dL (0.78-2.19)
[2021-03-03 20:22] LABS: Thyroid Stimulating Hormone 0.667 uIU/mL (0.47-4.68)
--- NOTE | 2021-03-03 22:55 | PC.NURSE ---
Pt refusing BP monitoring at this time. Pt rips off cuff as it inflates
[2021-03-04 00:30] VITALS: BP 134/88; PULSE 83; O2SAT 95
[2021-03-04] MEDS: ONDANSETRON 4 MG/2 ML INJ IV (00:36)
[2021-03-04] MEDS: HYDROCODONE/ACET 5/325 TABLET 2 TAB PO (00:36)
[2021-03-04] MEDS: LORazepam 0.5 MG TABLET 1 MG PO (01:11)
== END 2021-03-04 01:14 | disposition home or self-care (01) ==
PROVIDERS: Emergency Provider Emergency Medicine; PCP Family Medicine
DX: F10.139 Alcohol abuse with withdrawal, unspecified (principal); Y90.8 Blood alcohol level of 240 mg/100 ml or more
CPT/HCPCS: 36415; 80053; 80305; 80320; 80329; 81003; 84439; 84443; 85025; 96374; 96375; 99284; G0480; J2405; J2560

== ENCOUNTER 2022-04-19 11:52 | Emergency (ER) | payer OTHER, SELFPAY ==
[2022-04-19 11:59] VITALS: BP 146/78; PULSE 125; RESP 16; TEMP 37.3; O2SAT 97; BMI 28.1
[2022-04-19 13:18] VITALS: PULSE 119; O2SAT 98
[2022-04-19 13:19] VITALS: BP 148/100; PULSE 116; O2SAT 98
[2022-04-19 14:02] LABS: Add Manual Diff / Slide Review NO; Basophils Absolute Auto 0 /uL (0-100); Basophils Percent Auto 0.4 % (0-2); Eosinophils Absolute Auto 0 /uL (0-450); Eosinophils Percent Auto 0.4 % (2-4); Hemoglobin 16.2 g/dL (13.5-17.5); Lymphocytes Absolute Auto 1300 /uL (1100-4500); Lymphocytes Percent Auto 16.1 % (25-40); Mean Corpuscular HGB Conc 34.5 % (30-36); Mean Corpuscular Hemoglobin 31.7 PG (26-34); Monocytes Absolute Auto 1000 /uL (0-900); Monocytes Percent Auto 11.9 % (3-14); Neutrophils Absolute Auto 6000 /uL (1500-7000); Neutrophils Percent Auto 71.2 % (50-75); Platelet Count 165 X10^3/uL (150-400); White Blood Cell Count 8.4 X10^3/uL (4.5-11.0)
[2022-04-19 14:18] LABS: Alanine Aminotransferase 116 IU/L (<50); Albumin 5.1 g/dL (3.5-5.0); Albumin Globulin Ratio 1.2 (1.0-2.8); Aspartate Aminotransferase 167 IU/L (17-59); BUN Creatinine Ratio 16.4 (6-22); Bilirubin Total 1.2 mg/dL (0.2-1.3); Blood Urea Nitrogen 12 mg/dL (9-20); Calcium 9.5 mg/dL (8.4-10.2); Carbon Dioxide 30 mmol/L (22-32); Chloride 100 mmol/L (98-107); Creatine Kinase 463 U/L (55-170); Estimated Glomerular Filt Rate > 60 mL/min (>60); Ethanol (ETOH) 147 mg/dL; Globulin 4.2 g/dL (1.7-4.1); Glucose 116 mg/dL (70-100); Lipase 339 U/L (23-300); Sodium 143 mmol/L (137-145); Total Protein 9.3 g/dL (6.3-8.2)
[2022-04-19 14:27] LABS: Potassium 3.7 mmol/L (3.4-5.1)
[2022-04-19 14:28] LABS: Alkaline Phosphatase 132 U/L (38-126)
[2022-04-19 14:29] LABS: Troponin I 0.029 ng/mL (0.01-0.034)
[2022-04-19 14:32] LABS: CKMB % Relative Index 0.9 % (1.5-5.0)
[2022-04-19 14:39] LABS: HEMOLYSIS 79 (0-50)
--- NOTE | 2022-04-19 15:27 | PC.NURSE ---
@[id number] RN attempted to give medications and found patient and patient belongings missing. Not in bathroom. Pt found in waiting area and stated he did not want to continue with treatment in the ED. Denies SI/HI. Neuro intact. a/o x 4. Called a friend to come and pick him up. I spoke w/ both and told them he was always welcome to return. I also asked that they contact his mother so that she is aware of pt's movement.
== END 2022-04-19 15:33 | disposition left against medical advice (07) ==
PROVIDERS: Emergency Provider Emergency Medicine
DX: R56.9 Unspecified convulsions (principal)
CPT/HCPCS: 36415; 80053; 80320; 82550; 82553; 83690; 84484; 85025; 99283